=== PATIENT | female | born 1975 | race Hispanic/Latino ===

== ENCOUNTER 2025-05-31 08:12 | Day surgery (SDC) | payer OTHER ==
[2025-05-29 11:48] LABS: Anion Gap 8.7 mEq/L (5.0-15.0); BUN Blood Urea Nitrogen 14.0 mg/dL (7-18); Glucose Level 100.0 mg/dL (74-106); Potassium 4.7 mEq/L (3.5-5.1)
[2025-05-31] MEDS: Ringers Lactate 1,000 ML IV ONE (08:50)
[2025-05-31] MEDS ORDERED: LIDOCAINE 1% MPF 5 ML VIAL ONE ×2 (08:55)
[2025-05-31] MEDS ORDERED: EPHEDRINE SULF 50 MG/ML VIAL ONE (10:00)
[2025-05-31 11:01] VITALS: O2SAT 100
[2025-05-31 11:02] VITALS: TEMP 97
[2025-05-31 11:52] VITALS: BP 124/55
== END 2025-05-31 11:25 | disposition home or self-care (01) ==
LOC: OR 08:12
PROVIDERS: ATTEND Surgery
PROC: 0DJD8ZZ Inspection of Lower Intestinal Tract, Via Natural or Artificial Opening Endoscopic (ICD-10-PCS; principal; 2025-05-31 10:15)
DX: R10.31 Right lower quadrant pain (principal); K64.8 Other hemorrhoids
CPT/HCPCS: 93005; 80048; 36415; 45378; J2704 ×2; J2003 ×2; J7120